=== PATIENT | male | born 1965 | race African-American/Black ===

== ENCOUNTER 2020-03-29 14:24 | Inpatient (IN) | payer OTHER ==
[2020-03-29 15:23] VITALS: BMI 30.9
[2020-03-29] MEDS ORDERED: guaiFENesin 200 MG/10 ML 10 ML UNIT-DOSE CUPS PO PRN (15:32)
[2020-03-29] MEDS ORDERED: MAGNESIUM CITRATE 300 ML BOTTLE PO PRN (15:32)
[2020-03-29] MEDS ORDERED: IBUPROFEN 400 MG TABLET (FP) PO PRN (15:32)
[2020-03-29] MEDS ORDERED: MAGNESIUM HYDROX 2400MG/30ML ORAL SUSPENSION 30 ML CUP PO PRN (15:32)
[2020-03-29] MEDS ORDERED: LOPERAMIDE HCL 2 MG CAPSULE PO PRN (15:32)
[2020-03-29] MEDS ORDERED: P-EPHED 60MG/TRIPROLIDI 2.5MG TABLET PO PRN (15:32)
[2020-03-29] MEDS ORDERED: MAG HYDROX/AL HYDROX/SIMETH 30 ML UNIT-DOSE CUP PO PRN (15:32)
[2020-03-29] MEDS ORDERED: NICOTINE POLACRILEX 2 MG GUM BC PRN (15:32)
[2020-03-29] MEDS: hydrOXYzine PAMOATE 25 MG CAPSULE (FP) PO SCH ×2 (19:14→21:44)
[2020-03-29 19:23] LABS: HEMATOCRIT 37.6 % (35.4-49); HEMOGLOBIN 12.4 GM/dL (11.7-16.9); MCH 30.3 pg (25.7-33.7); MCHC 32.9 g/dl (32.0-35.9); MEAN CELL VOLUME 92.1 fl (80-96); MEAN PLT VOLUME 6.7 fl (7.5-11.1); PLATELET COUNT 368 K/MM3 (134-434); RBC 4.08 M/mm3 (4.00-5.60); RDW 14.8 % (11.9-15.9); WHITE BLOOD COUNT 4.4 K/mm3 (4.0-10.0)
[2020-03-29 19:32] LABS: POTASSIUM 4.3 mmol/L (3.5-5.1)
[2020-03-29 19:43] LABS: ALBUMIN 3.5 g/dl (3.4-5.0)
[2020-03-29 19:44] LABS: BLOOD UREA NITROGEN 11.3 mg/dL (7-18); CALCIUM 8.7 mg/dL (8.5-10.1)
[2020-03-29 19:49] LABS: BILIRUBIN,TOTAL 0.5 mg/dL (0.2-1); TOT PROT 7.4 g/dl (6.4-8.2)
[2020-03-29] MEDS: AMMONIUM LACTATE 12% LOTION 225 GM BOTTLE TP SCH (21:43)
[2020-03-29] MEDS: MELATONIN 5 MG TABLETS PO SCH (21:44)
[2020-03-29] MEDS: THIAMINE HCL 100 MG TABLET (FP) PO SCH (21:44)
[2020-03-29] MEDS: GABAPENTIN 300 MG CAPSULE PO SCH (21:44)
[2020-03-29] MEDS: FLUOCINONIDE 0.05% CREAM (15 GM TUBE) TP SCH (21:49)
[2020-03-30] MEDS: hydrOXYzine PAMOATE 25 MG CAPSULE (FP) PO SCH ×5 (06:11→21:16)
[2020-03-30] MEDS: GABAPENTIN 300 MG CAPSULE PO SCH ×3 (06:11→21:16)
[2020-03-30] MEDS: FLUOCINONIDE 0.05% CREAM (15 GM TUBE) TP SCH ×2 (09:50→21:18)
[2020-03-30] MEDS: AMMONIUM LACTATE 12% LOTION 225 GM BOTTLE TP SCH ×2 (09:50→21:18)
[2020-03-30] MEDS: NICOTINE 7 MG/24 HOURS TOPICAL PATCH TD SCH (09:50)
[2020-03-30] MEDS: PRENATAL VITAMINS W/ FOLIC ACID TABLET (FP) PO SCH (09:50)
[2020-03-30] MEDS ORDERED: COLLOIDAL OATMEAL 1 BAR EACH TP PRN (11:24)
[2020-03-30] MEDS: LIDOCAINE 5% TOPICAL PATCH TP SCH (14:37)
[2020-03-30 18:35] LABS: URINE APPEARANCE CLEAR; URINE BILIRUBIN NEGATIVE (NEGATIVE); URINE COLOR YELLOW; URINE GLUCOSE (UA) NEGATIVE (NEGATIVE); URINE KETONE NEGATIVE (NEGATIVE); URINE LEUK ESTERASE NEGATIVE (NEGATIVE); URINE NITRITE NEGATIVE (NEGATIVE); URINE PROTEIN NEGATIVE (NEGATIVE); URINE UROBILINOGEN 0.2 mg/dL (0.2-1.0)
[2020-03-30] MEDS: MELATONIN 5 MG TABLETS PO SCH (21:16)
[2020-03-30] MEDS: THIAMINE HCL 100 MG TABLET (FP) PO SCH (21:16)
[2020-03-30] MEDS: LIDOCAINE PATCH REMOVAL MC SCH (21:19)
[2020-03-31] MEDS: GABAPENTIN 300 MG CAPSULE PO SCH ×3 (06:22→21:19)
[2020-03-31] MEDS ORDERED: MASKS NR ONE (06:22)
[2020-03-31] MEDS: hydrOXYzine PAMOATE 25 MG CAPSULE (FP) PO SCH ×5 (06:22→21:21)
[2020-03-31] MEDS: AMMONIUM LACTATE 12% LOTION 225 GM BOTTLE TP SCH ×2 (09:37→21:20)
[2020-03-31] MEDS: LIDOCAINE 5% TOPICAL PATCH TP SCH (09:37)
[2020-03-31] MEDS: NICOTINE 7 MG/24 HOURS TOPICAL PATCH TD SCH (09:38)
[2020-03-31] MEDS: PRENATAL VITAMINS W/ FOLIC ACID TABLET (FP) PO SCH (09:38)
[2020-03-31] MEDS: FLUOCINONIDE 0.05% CREAM (15 GM TUBE) TP SCH ×2 (11:45→21:20)
[2020-03-31 12:34] LABS: SICKLE CELL SCREEN NEGATIVE (NEGATIVE)
[2020-03-31] MEDS: SUVOREXANT 10 MG TABLET PO PRN (21:19)
[2020-03-31] MEDS: THIAMINE HCL 100 MG TABLET (FP) PO SCH (21:19)
[2020-03-31] MEDS: LIDOCAINE PATCH REMOVAL MC SCH (21:20)
[2020-04-01] MEDS: GABAPENTIN 300 MG CAPSULE PO SCH ×3 (06:17→21:13)
[2020-04-01] MEDS: hydrOXYzine PAMOATE 25 MG CAPSULE (FP) PO SCH ×5 (06:17→21:14)
[2020-04-01] MEDS: LIDOCAINE 5% TOPICAL PATCH TP SCH (09:59)
[2020-04-01] MEDS: PRENATAL VITAMINS W/ FOLIC ACID TABLET (FP) PO SCH (09:59)
[2020-04-01] MEDS: NICOTINE 7 MG/24 HOURS TOPICAL PATCH TD SCH (10:00)
[2020-04-01] MEDS: FLUOCINONIDE 0.05% CREAM (15 GM TUBE) TP SCH ×2 (10:00→21:14)
[2020-04-01] MEDS: AMMONIUM LACTATE 12% LOTION 225 GM BOTTLE TP SCH ×2 (10:00→21:14)
[2020-04-01] MEDS: THIAMINE HCL 100 MG TABLET (FP) PO SCH (21:13)
[2020-04-01] MEDS: LIDOCAINE PATCH REMOVAL MC SCH (21:14)
[2020-04-02] MEDS: hydrOXYzine PAMOATE 25 MG CAPSULE (FP) PO SCH ×5 (06:12→21:24)
[2020-04-02] MEDS: GABAPENTIN 300 MG CAPSULE PO SCH ×3 (06:12→21:24)
[2020-04-02] MEDS: PRENATAL VITAMINS W/ FOLIC ACID TABLET (FP) PO SCH (09:26)
[2020-04-02] MEDS: NICOTINE 7 MG/24 HOURS TOPICAL PATCH TD SCH (09:27)
[2020-04-02] MEDS: FLUOCINONIDE 0.05% CREAM (15 GM TUBE) TP SCH ×2 (09:27→21:23)
[2020-04-02] MEDS: LIDOCAINE 5% TOPICAL PATCH TP SCH (09:28)
[2020-04-02] MEDS: AMMONIUM LACTATE 12% LOTION 225 GM BOTTLE TP SCH ×2 (09:42→21:23)
[2020-04-02] MEDS: LIDOCAINE PATCH REMOVAL MC SCH (21:24)
[2020-04-02] MEDS: SUVOREXANT 10 MG TABLET PO PRN (21:24)
[2020-04-02] MEDS: THIAMINE HCL 100 MG TABLET (FP) PO SCH (21:24)
[2020-04-03] MEDS: GABAPENTIN 300 MG CAPSULE PO SCH ×3 (06:51→21:10)
[2020-04-03] MEDS: hydrOXYzine PAMOATE 25 MG CAPSULE (FP) PO SCH ×5 (06:51→21:10)
[2020-04-03] MEDS: PRENATAL VITAMINS W/ FOLIC ACID TABLET (FP) PO SCH (09:35)
[2020-04-03] MEDS: FLUOCINONIDE 0.05% CREAM (15 GM TUBE) TP SCH ×2 (09:35→21:11)
[2020-04-03] MEDS: LIDOCAINE 5% TOPICAL PATCH TP SCH (09:35)
[2020-04-03] MEDS: NICOTINE 7 MG/24 HOURS TOPICAL PATCH TD SCH (09:36)
[2020-04-03] MEDS: AMMONIUM LACTATE 12% LOTION 225 GM BOTTLE TP SCH ×2 (09:36→21:11)
[2020-04-03] MEDS: THIAMINE HCL 100 MG TABLET (FP) PO SCH (21:10)
[2020-04-03] MEDS: SUVOREXANT 10 MG TABLET PO PRN (21:10)
[2020-04-03] MEDS: LIDOCAINE PATCH REMOVAL MC SCH (21:11)
[2020-04-04] MEDS: ACETAMINOPHEN 325 MG TABLET (FP) PO PRN (06:51)
[2020-04-04] MEDS: GABAPENTIN 300 MG CAPSULE PO SCH ×3 (06:53→21:30)
[2020-04-04] MEDS: hydrOXYzine PAMOATE 25 MG CAPSULE (FP) PO SCH ×5 (06:53→21:30)
[2020-04-04] MEDS: PRENATAL VITAMINS W/ FOLIC ACID TABLET (FP) PO SCH (09:47)
[2020-04-04] MEDS: LIDOCAINE 5% TOPICAL PATCH TP SCH (09:48)
[2020-04-04] MEDS: FLUOCINONIDE 0.05% CREAM (15 GM TUBE) TP SCH ×2 (09:48→21:30)
[2020-04-04] MEDS: AMMONIUM LACTATE 12% LOTION 225 GM BOTTLE TP SCH ×2 (09:49→21:29)
[2020-04-04] MEDS: NICOTINE 7 MG/24 HOURS TOPICAL PATCH TD SCH (09:49)
[2020-04-04] MEDS: LIDOCAINE PATCH REMOVAL MC SCH (21:30)
[2020-04-04] MEDS: THIAMINE HCL 100 MG TABLET (FP) PO SCH (21:30)
[2020-04-04] MEDS: SUVOREXANT 10 MG TABLET PO PRN (21:30)
[2020-04-05] MEDS: GABAPENTIN 300 MG CAPSULE PO SCH ×3 (06:31→21:28)
[2020-04-05] MEDS: hydrOXYzine PAMOATE 25 MG CAPSULE (FP) PO SCH ×3 (06:31→13:40)
[2020-04-05] MEDS: PRENATAL VITAMINS W/ FOLIC ACID TABLET (FP) PO SCH (09:44)
[2020-04-05] MEDS: LIDOCAINE 5% TOPICAL PATCH TP SCH (09:44)
[2020-04-05] MEDS: AMMONIUM LACTATE 12% LOTION 225 GM BOTTLE TP SCH ×2 (09:45→21:29)
[2020-04-05] MEDS: FLUOCINONIDE 0.05% CREAM (15 GM TUBE) TP SCH ×2 (09:45→21:29)
[2020-04-05] MEDS: NICOTINE 7 MG/24 HOURS TOPICAL PATCH TD SCH (09:45)
[2020-04-05] MEDS: THIAMINE HCL 100 MG TABLET (FP) PO SCH (21:27)
[2020-04-05] MEDS: hydrOXYzine PAMOATE 25 MG CAPSULE (FP) PO PRN (21:28)
[2020-04-05] MEDS: LIDOCAINE PATCH REMOVAL MC SCH (21:28)
[2020-04-05] MEDS: SUVOREXANT 10 MG TABLET PO PRN (21:29)
[2020-04-06] MEDS: hydrOXYzine PAMOATE 25 MG CAPSULE (FP) PO PRN ×3 (06:21→21:16)
[2020-04-06] MEDS: GABAPENTIN 300 MG CAPSULE PO SCH ×3 (06:21→21:16)
[2020-04-06] MEDS: PRENATAL VITAMINS W/ FOLIC ACID TABLET (FP) PO SCH (09:47)
[2020-04-06] MEDS: LIDOCAINE 5% TOPICAL PATCH TP SCH (09:47)
[2020-04-06] MEDS: NICOTINE 7 MG/24 HOURS TOPICAL PATCH TD SCH (09:48)
[2020-04-06] MEDS: AMMONIUM LACTATE 12% LOTION 225 GM BOTTLE TP SCH ×2 (09:48→21:15)
[2020-04-06] MEDS: FLUOCINONIDE 0.05% CREAM (15 GM TUBE) TP SCH ×2 (12:36→21:15)
[2020-04-06] MEDS: THIAMINE HCL 100 MG TABLET (FP) PO SCH (21:15)
[2020-04-06] MEDS: SUVOREXANT 10 MG TABLET PO PRN (21:16)
[2020-04-06] MEDS: LIDOCAINE PATCH REMOVAL MC SCH (22:04)
[2020-04-07] MEDS: GABAPENTIN 300 MG CAPSULE PO SCH ×3 (06:20→21:28)
[2020-04-07] MEDS: PRENATAL VITAMINS W/ FOLIC ACID TABLET (FP) PO SCH (09:43)
[2020-04-07] MEDS: LIDOCAINE 5% TOPICAL PATCH TP SCH (09:43)
[2020-04-07] MEDS: AMMONIUM LACTATE 12% LOTION 225 GM BOTTLE TP SCH ×2 (09:44→21:26)
[2020-04-07] MEDS: hydrOXYzine PAMOATE 25 MG CAPSULE (FP) PO PRN ×2 (09:44→21:27)
[2020-04-07] MEDS: NICOTINE 7 MG/24 HOURS TOPICAL PATCH TD SCH (09:44)
[2020-04-07] MEDS: FLUOCINONIDE 0.05% CREAM (15 GM TUBE) TP SCH ×2 (09:44→21:26)
[2020-04-07] MEDS: THIAMINE HCL 100 MG TABLET (FP) PO SCH (21:27)
[2020-04-07] MEDS: LIDOCAINE PATCH REMOVAL MC SCH (21:28)
[2020-04-07] MEDS: SUVOREXANT 10 MG TABLET PO PRN (21:29)
[2020-04-08] MEDS: GABAPENTIN 300 MG CAPSULE PO SCH ×3 (06:21→21:39)
[2020-04-08] MEDS: AMMONIUM LACTATE 12% LOTION 225 GM BOTTLE TP SCH ×2 (10:02→21:37)
[2020-04-08] MEDS: NICOTINE 7 MG/24 HOURS TOPICAL PATCH TD SCH (10:02)
[2020-04-08] MEDS: PRENATAL VITAMINS W/ FOLIC ACID TABLET (FP) PO SCH (10:02)
[2020-04-08] MEDS: LIDOCAINE 5% TOPICAL PATCH TP SCH (10:02)
[2020-04-08] MEDS: FLUOCINONIDE 0.05% CREAM (15 GM TUBE) TP SCH ×2 (10:03→21:38)
[2020-04-08] MEDS: LIDOCAINE PATCH REMOVAL MC SCH (21:39)
[2020-04-08] MEDS: SUVOREXANT 10 MG TABLET PO PRN (21:39)
[2020-04-08] MEDS: hydrOXYzine PAMOATE 25 MG CAPSULE (FP) PO PRN (21:39)
[2020-04-08] MEDS: THIAMINE HCL 100 MG TABLET (FP) PO SCH (21:39)
[2020-04-09] MEDS: GABAPENTIN 300 MG CAPSULE PO SCH ×3 (06:33→21:36)
[2020-04-09] MEDS: PRENATAL VITAMINS W/ FOLIC ACID TABLET (FP) PO SCH (09:10)
[2020-04-09] MEDS: NICOTINE 7 MG/24 HOURS TOPICAL PATCH TD SCH (09:10)
[2020-04-09] MEDS: AMMONIUM LACTATE 12% LOTION 225 GM BOTTLE TP SCH ×2 (09:11→21:36)
[2020-04-09] MEDS: LIDOCAINE 5% TOPICAL PATCH TP SCH (09:14)
[2020-04-09] MEDS: FLUOCINONIDE 0.05% CREAM (15 GM TUBE) TP SCH ×2 (10:24→21:36)
[2020-04-09] MEDS: THIAMINE HCL 100 MG TABLET (FP) PO SCH (21:36)
[2020-04-09] MEDS: LIDOCAINE PATCH REMOVAL MC SCH (21:36)
[2020-04-09] MEDS: SUVOREXANT 10 MG TABLET PO PRN (21:38)
[2020-04-10] MEDS: GABAPENTIN 300 MG CAPSULE PO SCH ×3 (06:06→21:35)
[2020-04-10] MEDS: hydrOXYzine PAMOATE 25 MG CAPSULE (FP) PO PRN (06:06)
[2020-04-10] MEDS: PRENATAL VITAMINS W/ FOLIC ACID TABLET (FP) PO SCH (09:55)
[2020-04-10] MEDS: LIDOCAINE 5% TOPICAL PATCH TP SCH (09:56)
[2020-04-10] MEDS: AMMONIUM LACTATE 12% LOTION 225 GM BOTTLE TP SCH ×2 (09:56→21:36)
[2020-04-10] MEDS: NICOTINE 7 MG/24 HOURS TOPICAL PATCH TD SCH (09:56)
[2020-04-10] MEDS: FLUOCINONIDE 0.05% CREAM (15 GM TUBE) TP SCH ×2 (09:57→21:36)
[2020-04-10] MEDS: THIAMINE HCL 100 MG TABLET (FP) PO SCH (21:35)
[2020-04-10] MEDS: LIDOCAINE PATCH REMOVAL MC SCH (21:36)
[2020-04-10] MEDS: SUVOREXANT 10 MG TABLET PO PRN (21:37)
[2020-04-11] MEDS: GABAPENTIN 300 MG CAPSULE PO SCH ×3 (06:29→21:27)
[2020-04-11] MEDS: LIDOCAINE 5% TOPICAL PATCH TP SCH (09:45)
[2020-04-11] MEDS: PRENATAL VITAMINS W/ FOLIC ACID TABLET (FP) PO SCH (09:45)
[2020-04-11] MEDS: hydrOXYzine PAMOATE 25 MG CAPSULE (FP) PO PRN ×2 (09:46→21:27)
[2020-04-11] MEDS: FLUOCINONIDE 0.05% CREAM (15 GM TUBE) TP SCH ×2 (09:46→21:26)
[2020-04-11] MEDS: NICOTINE 7 MG/24 HOURS TOPICAL PATCH TD SCH (09:46)
[2020-04-11] MEDS: AMMONIUM LACTATE 12% LOTION 225 GM BOTTLE TP SCH ×2 (09:46→21:26)
[2020-04-11] MEDS: LIDOCAINE PATCH REMOVAL MC SCH (21:27)
[2020-04-11] MEDS: SUVOREXANT 10 MG TABLET PO PRN (21:27)
[2020-04-11] MEDS: THIAMINE HCL 100 MG TABLET (FP) PO SCH (21:27)
[2020-04-12] MEDS: ACETAMINOPHEN 325 MG TABLET (FP) PO PRN (06:48)
[2020-04-12] MEDS: GABAPENTIN 300 MG CAPSULE PO SCH ×3 (06:48→21:23)
[2020-04-12] MEDS: LIDOCAINE 5% TOPICAL PATCH TP SCH (10:01)
[2020-04-12] MEDS: PRENATAL VITAMINS W/ FOLIC ACID TABLET (FP) PO SCH (10:01)
[2020-04-12] MEDS: FLUOCINONIDE 0.05% CREAM (15 GM TUBE) TP SCH ×2 (10:02→21:23)
[2020-04-12] MEDS: AMMONIUM LACTATE 12% LOTION 225 GM BOTTLE TP SCH ×2 (10:02→21:23)
[2020-04-12] MEDS: NICOTINE 7 MG/24 HOURS TOPICAL PATCH TD SCH (10:02)
[2020-04-12] MEDS: hydrOXYzine PAMOATE 25 MG CAPSULE (FP) PO PRN ×3 (10:02→21:23)
[2020-04-12] MEDS: THIAMINE HCL 100 MG TABLET (FP) PO SCH (21:23)
[2020-04-12] MEDS: SUVOREXANT 10 MG TABLET PO PRN (21:23)
[2020-04-12] MEDS: LIDOCAINE PATCH REMOVAL MC SCH (21:23)
[2020-04-13] MEDS: ACETAMINOPHEN 325 MG TABLET (FP) PO PRN (06:33)
[2020-04-13] MEDS: GABAPENTIN 300 MG CAPSULE PO SCH (06:33)
[2020-04-13 06:54] VITALS: TEMP 97.7
[2020-04-13] MEDS: PRENATAL VITAMINS W/ FOLIC ACID TABLET (FP) PO SCH (09:28)
[2020-04-13] MEDS: FLUOCINONIDE 0.05% CREAM (15 GM TUBE) TP SCH (09:29)
[2020-04-13] MEDS: LIDOCAINE 5% TOPICAL PATCH TP SCH (09:29)
[2020-04-13] MEDS: NICOTINE 7 MG/24 HOURS TOPICAL PATCH TD SCH (09:29)
[2020-04-13] MEDS: AMMONIUM LACTATE 12% LOTION 225 GM BOTTLE TP SCH (09:29)
[2020-04-13 11:06] VITALS: BP 127/84; PULSE 99
== END 2020-04-13 09:45 | disposition home or self-care (01) | DRG 772 ==
LOC: YASAS 14:24 → Y5N 16:11
PROVIDERS: ADMIT Allergy & Immunology; ATTEND Allergy & Immunology
PROC: HZ42ZZZ Group Counseling for Substance Abuse Treatment, Cognitive-Behavioral (ICD-10-PCS; principal; 2020-03-29)
DX: F10.20 Alcohol dependence, uncomplicated (principal); F19.282 Other psychoactive substance dependence with psychoactive substance-induced sleep disorder; F19.280 Other psychoactive substance dependence with psychoactive substance-induced anxiety disorder; F19.24 Other psychoactive substance dependence with psychoactive substance-induced mood disorder; F32.9 Major depressive disorder, single episode, unspecified; G62.1 Alcoholic polyneuropathy; N18.9 Chronic kidney disease, unspecified; L30.9 Dermatitis, unspecified; Z62.810 Personal history of physical and sexual abuse in childhood; Z86.73 Personal history of transient ischemic attack (TIA), and cerebral infarction without residual deficits; Z98.1 Arthrodesis status; Z87.891 Personal history of nicotine dependence; Z99.89 Dependence on other enabling machines and devices
CPT/HCPCS: 36415; 80053; 81003; 85027; 85660; 86780; 93005; 93010